=== PATIENT | female | born 1950 | race Caucasian/White ===

== ENCOUNTER 2023-10-21 14:20 | Inpatient (IN) | payer MEDICARE, OTHER ==
[~2023-10-21] VITALS: Ht 157.5 cm; Wt 70.8 kg
[2023-10-21] MEDS ORDERED: SYNT50TA PO (14:59)
[2023-10-21 15:00] LABS: BASO % 0.1 % (0.0-1.0); HEMATOCRIT 46.9 % (36.0-47.0); HEMOGLOBIN 15.9 g/dl (12.0-15.5); LYMPH # 1.3 10^3/uL (1.5-5.0); LYMPH % 8.8 % (24.0-44.0); MEAN CORPUSCULAR HEMOGLOBIN 31.5 pg (27.0-33.0); MEAN CORPUSCULAR HGB CONC 33.9 g/dl (32.0-36.5); MEAN CORPUSCULAR VOLUME 92.9 fl (80.0-96.0); MONO # 0.9 10^3/uL (0.0-0.8); MONO % 5.9 % (2.0-8.0); NEUTROPHILS # 12.9 10^3/uL (1.5-8.5); NEUTROPHILS % 84.7 % (36.0-66.0); PLATELET COUNT, AUTOMATED 264 10^3/uL (150-450); RED BLOOD COUNT 5.05 10^6/uL (4.00-5.40); WHITE BLOOD COUNT 15.2 10^3/uL (4.0-10.0)
[2023-10-21 15:18] LABS: INR 0.99; PROTHROMBIN TIME 12.8 SECONDS (12.5-14.5)
[2023-10-21] MEDS: methylPREDNISolone 125MG 2ML VIAL IV ONE ×2 (15:24→22:31)
[2023-10-21] MEDS: FAMOTIDINE 20MG/2ML VIAL IVP ONE (15:24)
[2023-10-21] MEDS: diphenhydrAMINE 50MG/ML VIAL IV ONE ×2 (15:25→22:32)
[2023-10-21 15:32] LABS: LIPASE 33 U/L (12-53)
[2023-10-21 15:44] LABS: ALBUMIN 3.9 G/DL (3.2-5.2); ALKALINE PHOSPHATASE 111 U/L (46-116); ALT/SGPT 37 U/L (7.0-40); AST/SGOT 53 U/L (<34); BILIRUBIN,DIRECT 0.1 MG/DL (<0.4); BILIRUBIN,TOTAL 0.5 MG/DL (0.3-1.2); BLOOD UREA NITROGEN 16 MG/DL (9-23); CALCIUM LEVEL 9.3 MG/DL (8.3-10.6); CARBON DIOXIDE LEVEL 25 MMOL/L (20-31); CHLORIDE LEVEL 107 MMOL/L (98-107); CK-MB VALUE MASS < 1.0 NG/ML (<3.6); CREATININE FOR GFR 0.87 MG/DL (0.55-1.30); GLOMERULAR FILTRATION RATE > 60.0 (>39); GLUCOSE, FASTING 167 MG/DL (74-106); POTASSIUM SERUM 4.5 MMOL/L (3.5-5.1); SODIUM LEVEL 140 MMOL/L (136-145)
[2023-10-21 15:51] LABS: CPK CREATINE PHOSPHOKINASE 115 U/L (34-145); MB/CK RELATIVE INDEX 0.86 (< OR =4)
[2023-10-21] MEDS: ONDANSETRON 4MG 2ML VIAL IV ONE (17:19)
[2023-10-21] MEDS: METOCLOPRAMIDE INJ 10MG/2ML VIAL IV ONE (18:27)
[2023-10-21] MEDS ORDERED: PRED20TA PO (20:51)
[2023-10-21] MEDS ORDERED: CETI10CH PO (20:51)
[2023-10-21] MEDS ORDERED: CEPH500C PO (20:51)
[2023-10-21] MEDS ORDERED: CULT10CA4 PO (20:51)
[2023-10-21] MEDS ORDERED: PANT20TA6 PO (20:51)
[2023-10-21] MEDS ORDERED: HOME MED LIST COMPLETE! XX SCH (20:55)
[2023-10-21] MEDS: FOSFOMYCIN TROMETHAMINE 3 GM POWDER PACKET (MONUROL) PO ONE (20:58)
[2023-10-21] MEDS ORDERED: MOM 30ML SUSPENSION UDC PO PRN (22:10)
[2023-10-21] MEDS: EPINEPHrine INJ 1 MG/ML 1ML AMP IM STA (22:31)
[2023-10-21] MEDS: FAMOTIDINE IV BAG 20 MG in IV 1 EA IV ONE (22:32)
[2023-10-22] VITALS (14 sets, daily range): BP systolic 119–175; BP diastolic 58–81; TEMP 99.6–100.7; O2SAT 90–95
[2023-10-22] MEDS: ERTAPENEM SODIUM 1 GM in NS MINI-BAG PLUS 50 ML IV SCH (01:57)
[2023-10-22] MEDS ORDERED: EPINEPHRINE HCL IV STA ×2 (05:03→05:21)
[2023-10-22] MEDS ORDERED: NS IV STA ×2 (05:03→05:21)
[2023-10-22] MEDS: EPINEPHrine INJ 1 MG/ML 1ML AMP IM STA (05:20)
[2023-10-22] MEDS: EPINEPHRINE HCL IV STA (05:38)
[2023-10-22] MEDS: NS IV STA (05:38)
[2023-10-22 06:01] LABS: HEMATOCRIT 48.5 % (36.0-47.0); HEMOGLOBIN 16.5 g/dl (12.0-15.5); MEAN CORPUSCULAR HEMOGLOBIN 31.4 pg (27.0-33.0); MEAN CORPUSCULAR VOLUME 92.4 fl (80.0-96.0); PLATELET COUNT, AUTOMATED 284 10^3/uL (150-450); RED BLOOD COUNT 5.25 10^6/uL (4.00-5.40); WHITE BLOOD COUNT 19.3 10^3/uL (4.0-10.0)
[2023-10-22 06:24] LABS: CALCIUM LEVEL 8.9 MG/DL (8.3-10.6); CREATININE FOR GFR 1.06 MG/DL (0.55-1.30); GLOMERULAR FILTRATION RATE 54.1 (>39); MAGNESIUM LEVEL 1.8 MG/DL (1.8-2.4); POTASSIUM SERUM 3.7 MMOL/L (3.5-5.1)
[2023-10-22 06:45] LABS: HEMOGLOBIN A1c 5.6 % (4.0-6.0)
[2023-10-22] MEDS ORDERED: IPRATROPIUM 0.5MG/ALBUTEROL 2.5MG INH SOL UD 3ML (DUONEB) NEB PRN (07:35)
[2023-10-22] MEDS: FAMOTIDINE IV BAG 40 MG in IV 1 EA IV SCH (07:51)
[2023-10-22] MEDS: methylPREDNISolone 40MG 1ML VIAL IV SCH (07:51)
[2023-10-22] MEDS: PANTOPRAZOLE 40MG VIAL IV SCH (07:54)
[2023-10-22] MEDS: EPINEPHrine HCL INJ 1 MG in D5W 240 ML IV SCH (08:44)
[2023-10-22] MEDS ORDERED: PANTOPRAZOLE 20 MG TAB PO SCH (09:00)
[2023-10-22] MEDS: ENOXAPARIN 40MG/0.4ML SYRINGE (J1650 PER 10MG) SC SCH (09:42)
[2023-10-22] MEDS: diphenhydrAMINE 50MG/ML VIAL IV PRN (10:06)
[2023-10-22] MEDS: LEVOTHYROXINE 50MCG TABLET (0.05MG) PO SCH (11:00)
[2023-10-22] MEDS: EPINEPHrine HCL INJ 16 MG in D5W 984 ML IV SCH (12:42)
[2023-10-22] MEDS: ACETAMINOPHEN TAB 650MG DOSE (2X325MG) PO PRN (15:24)
[2023-10-22] MEDS: CETIRIZINE (ZyrTEC) 5 MG/5 ML UDC DYE FREE PO SCH (21:00)
[2023-10-23] VITALS (27 sets, daily range): BP systolic 114–182; BP diastolic 57–126; TEMP 98.4–99.2; O2SAT 91–96
[2023-10-23 04:21] LABS: BASO # 0.1 10^3/uL (0.0-0.2); BASO % 0.2 % (0.0-1.0); LYMPH # 1.2 10^3/uL (1.5-5.0); MEAN CORPUSCULAR HEMOGLOBIN 31.5 pg (27.0-33.0); MEAN CORPUSCULAR HGB CONC 34.1 g/dl (32.0-36.5); MEAN CORPUSCULAR VOLUME 92.3 fl (80.0-96.0); MONO # 1.8 10^3/uL (0.0-0.8); MONO % 6.1 % (2.0-8.0); NEUTROPHILS # 26.7 10^3/uL (1.5-8.5); NEUTROPHILS % 88.2 % (36.0-66.0); PLATELET COUNT, AUTOMATED 263 10^3/uL (150-450); RED BLOOD COUNT 4.44 10^6/uL (4.00-5.40)
[2023-10-23 04:27] LABS: WHITE BLOOD COUNT 30.2 10^3/uL (4.0-10.0)
[2023-10-23 04:43] LABS: C REACTIVE PROTEIN QUANTITATIV 3.2 MG/DL (<1.0)
[2023-10-23 04:44] LABS: ALBUMIN 3.7 G/DL (3.2-5.2); BILIRUBIN,TOTAL 0.3 MG/DL (0.3-1.2); CREATININE FOR GFR 0.97 MG/DL (0.55-1.30); GLOMERULAR FILTRATION RATE 59.9 (>39); MAGNESIUM LEVEL 2.1 MG/DL (1.8-2.4); POTASSIUM SERUM 3.1 MMOL/L (3.5-5.1); TOTAL PROTEIN 6.7 G/DL (5.7-8.2)
[2023-10-23] MEDS: SYNTHROID 50 MCG PO SCH (05:05)
[2023-10-23] MEDS: POTASSIUM CHLORIDE 10MEQ SR TABLET PO ONE ×2 (05:37→13:09)
[2023-10-23] MEDS: PANTOPRAZOLE 40MG VIAL IV SCH (08:42)
[2023-10-23] MEDS ORDERED: ENOXAPARIN 40MG/0.4ML SYRINGE (J1650 PER 10MG) SC SCH (09:00)
[2023-10-23] MEDS: ERTAPENEM SODIUM 1 GM in NS MINI-BAG PLUS 50 ML IV SCH (11:01)
[2023-10-24] VITALS (10 sets, daily range): BP systolic 113–142; BP diastolic 58–76; TEMP 97.8–99; O2SAT 91–95
[2023-10-24 05:18] LABS: HEMATOCRIT 34.5 % (36.0-47.0); MEAN CORPUSCULAR HEMOGLOBIN 31.6 pg (27.0-33.0); MEAN CORPUSCULAR HGB CONC 34.2 g/dl (32.0-36.5); MEAN CORPUSCULAR VOLUME 92.5 fl (80.0-96.0); PLATELET COUNT, AUTOMATED 201 10^3/uL (150-450); RED BLOOD COUNT 3.73 10^6/uL (4.00-5.40); WHITE BLOOD COUNT 27.1 10^3/uL (4.0-10.0)
[2023-10-24 05:33] LABS: HEMOGLOBIN 11.8 g/dl (12.0-15.5)
[2023-10-24 05:52] LABS: ALBUMIN 3.1 G/DL (3.2-5.2); ALKALINE PHOSPHATASE 78 U/L (46-116); ALT/SGPT 74 U/L (7.0-40); AST/SGOT 43 U/L (<34); BILIRUBIN,TOTAL 0.3 MG/DL (0.3-1.2); BLOOD UREA NITROGEN 23 MG/DL (9-23); CALCIUM LEVEL 8.7 MG/DL (8.3-10.6); CARBON DIOXIDE LEVEL 27 MMOL/L (20-31); CHLORIDE LEVEL 112 MMOL/L (98-107); CREATININE FOR GFR 0.76 MG/DL (0.55-1.30); GLOMERULAR FILTRATION RATE > 60.0 (>39); GLUCOSE, FASTING 113 MG/DL (74-106); SODIUM LEVEL 143 MMOL/L (136-145); TOTAL PROTEIN 5.7 G/DL (5.7-8.2)
[2023-10-24 06:14] LABS: LYMPHOCYTES 3 % (16-44); MONOCYTES 2 % (0-5); NEUTROPHILS 94 % (28-66)
[2023-10-24 06:16] LABS: PLATELET ESTIMATE DECREASED (NORMAL)
[2023-10-24 06:17] LABS: ANISOCYTOSIS 1+
[2023-10-24] MEDS: predniSONE 20 MG TAB PO SCH (09:29)
[2023-10-24] MEDS: FAMOTIDINE 20 MG TAB PO SCH (09:29)
[2023-10-24] MEDS: diphenhydrAMINE 25MG CAP PO SCH (12:27)
[2023-10-24] MEDS: AUGMENTIN 875 MG TAB PO ONE (15:19)
[2023-10-24] MEDS ORDERED: EPIP0.3I2 IM (17:38)
[2023-10-24] MEDS ORDERED: DIPH-435 PO (17:38)
[2023-10-24] MEDS ORDERED: PRED20TA PO (17:38)
[2023-10-24] MEDS ORDERED: FAMO20TA PO (17:38)
[2023-10-24] MEDS ORDERED: AMOX875T2 PO (17:41)
== END 2023-10-24 18:18 | disposition home or self-care (01) | DRG 916 ==
LOC: M ED 14:20 → M ED INP 22:08 → M ICU 10-22 09:33
PROVIDERS: ADMIT Internal Medicine; ATTEND Internal Medicine Pulmonary Disease
DX: T88.6XXA Anaphylactic reaction due to adverse effect of correct drug or medicament properly administered, initial encounter (principal); N39.0 Urinary tract infection, site not specified; N12 Tubulo-interstitial nephritis, not specified as acute or chronic; T36.1X5A Adverse effect of cephalosporins and other beta-lactam antibiotics, initial encounter; E03.9 Hypothyroidism, unspecified; N28.1 Cyst of kidney, acquired; E87.6 Hypokalemia; N20.0 Calculus of kidney; K21.9 Gastro-esophageal reflux disease without esophagitis; Z86.718 Personal history of other venous thrombosis and embolism; Z86.711 Personal history of pulmonary embolism; Z79.890 Hormone replacement therapy; Z79.899 Other long term (current) drug therapy; Z79.52 Long term (current) use of systemic steroids; Z88.1 Allergy status to other antibiotic agents; Z88.2 Allergy status to sulfonamides; Z88.8 Allergy status to other drugs, medicaments and biological substances